=== PATIENT | male | born 1995 | race Caucasian/White ===

== ENCOUNTER 2017-12-27 20:25 | Emergency (ER) | payer OTHER, SELFPAY ==
[2017-12-27 20:25] VITALS: BP 149/88; PULSE 118; RESP 15; TEMP 37.8; BMI 40.1
[2017-12-27 21:13] VITALS: TEMP 37.1
--- NOTE | 2017-12-27 22:27 | ED.VISSUMM ---
- ER Visit Summary Date of Service: 12/27/17 Chief Complaint: Fever History of Present Illness: The patient is a 22 M who states that both him and his have been ill since yesterday. He states he has had a fever. 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 He notes a sore throat generalized myalgias slight headache and feels lightheaded. He last had Tylenol at 1900 hrs. ingesting 1000 mg. Otherwise a very healthy individual. He has no family doctor. Physical Examination: Afebrile here 98.6 heart rate of 118 respirations are 15 pulse ox is 98% on my exam blood pressure 149/88 Gen: Well-nourished well-developed Head: Normocephalic atraumatic Eyes: Perrl EOMI ENT: TMs clear no rhinorrhea moist mucous membranes the posterior pharynx is erythematous. There is some palatal petechiae. Neck: Supple no meningitic signs. There is scant anterior lymphadenopathy CVS: Regular rate and tachycardic rhythm no murmurs normal S1-S2 Respiratory: No distress clear to auscultation bilaterally chest nontender Abdomen: Soft nontender nondistended normal bowel sounds no masses Back: Nontender Extremity: Nontender no edema Skin: Normal color no rash diaphoretic Neuro: alert orientated ?3 CN II-XII intact normal strength sensation reflexes gait cerebellar Psych: Normal affect normal mood Test Results: Rapid strep is negative Emergency Department Course and Treatment: She will be discharged home with supportive care instructions for Tylenol or Motrin and fluid hydration and rest. Impression: 1. Viral pharyngitis This note was generated with [employer] dictation software. It may contain incorrect words, spelling, and punctuation that were not noted in review of the chart prior to signing ED Disposition - Plan for ED Patient: Disposition: Home or Assisted Living Chief Complaint: Fever Instructions: ED Pharyngitis Viral Prescriptions: Ibuprofen [Motrin] 800 mg PO TID PRN PRN #20 tab PRN Reason: Fever Referrals: Emmy Rasmussen MD [STAFF PHYSICIAN] - 1 Week if not improving
[2017-12-27 22:34] VITALS: PULSE 103; RESP 17; TEMP 37; O2SAT 99
== END 2017-12-27 22:35 | disposition home or self-care (01) ==
PROVIDERS: Emergency Provider Emergency Medicine
DX: J02.9 Acute pharyngitis, unspecified (principal)
CPT/HCPCS: 87880; 99282

== ENCOUNTER 2022-09-10 11:31 | Emergency (ER) | payer OTHER, SELFPAY ==
[2022-09-10 11:33] VITALS: BP 170/110; PULSE 71; RESP 18; TEMP 36.1; O2SAT 100; BMI 46.5
--- NOTE | 2022-09-10 11:54 | EX.ED.GENINJ ---
HPI History of Present Illness Chief Complaint: Head Injury Informant: patient Onset/Context/Timing Onset: Today Mechanism/Context: Fall Quality of Pain: Throbbing Location: Vertex of scalp Worsened by: Nothing Relieved by: Nothing Associated Symptoms Associated Symptoms: Negative for Parasthesias, Weakness, Loss of function, Inability to ambulate, Loss of consciousness or Amnesia Narrative Narrative: Patient presents with head injury that occurred today while he was at work. Patient states he fell backwards and hit the top of his head on a concrete curb. Patient denies any loss of consciousness. Patient denies any paresthesias or weakness. Patient denies any difficulty ambulating. Patient states nothing makes his pain worse and nothing makes it better. Patient describes his pain as throbbing. Patient denies any other injuries. Patient denies any bleeding or lacerations. PFSH PFSH Medical History no medical history no medical history Home Medications ibuprofen 800 mg tablet 800 mg PO TID PRN PRN Fever #20 tabs 12/27/17 [Rx Last Taken Unknown] Allergy/AdvReac Type Severity Reaction Status Date / Time No Known Allergies Allergy Verified 09/10/22 11:32 Surgical History no surgical history no surgical history Social History Smoking Status: Never smoker ROS ROS ED Constitutional Constitutional ED: Denies chills or fever(s) Eyes Eyes: Denies blurry vision or change in vision ENT ENT ED: Denies rhinorrhea or sore throat Cardiovascular Cardiovascular: Denies chest pain or palpitations Respiratory/Chest Respiratory/Chest: Denies cough or dyspnea Gastrointestinal Gastrointestinal: Denies nausea or vomiting Genitourinary Genitourinary ED: Denies dysuria or hematuria Musculoskeletal Musculoskeletal: Denies back pain or neck pain Integumentary Denies abscess or rash Neurologic Neurologic: Reports headache(s); Denies weakness Allergic/Immunologic Allergic/Immunologic ED: Denies mouth swelling or urticaria EXAM Physical Exam Const Vital Signs: 09/10/22 11:33 09/10/22 11:47 Temperature 97 F L Temperature Source Temporal Pulse Rate 71 Respiratory Rate 18 Respiratory Effort Normal Respiratory Depth Normal Respiratory Pattern Normal Blood Pressure 170/110 H Blood Pressure Mean 130 Pulse Ox 100 Oxygen Delivery Method Room Air Room Air Positive well nourished, well developed and obese General Appearance ED: well developed and NAD Nutritional Appearance: obese HEENT HEENT Narrative: There is tenderness over the vertex of the scalp. There is some mild edema. There is no bony crepitance or step-off. tenderness Eyes PERRL and EOMs intact bilaterally Neck full ROM Extremity normal to inspection and full ROM Neuro oriented x3, CN's II-XII intact bilaterally, moves all extremities, no focal motor deficits and no sensory deficits noted Varinder Coma Scale: document GCS findings Spontaneous Obeys Commands Oriented 15 Sensorium / Orientation: alert Motor Exam: strength 5/5 throughout Psych mental status grossly normal and thought process normal Skin no rashes or lesions noted MDM MDM MDM Narrative Medical decision making narrative: Differential diagnosis includes concussion and head contusion. Since the patient is not on any anticoagulants, had no loss of consciousness, and has no neurologic deficits, I do not feel that head CT is necessary at this time. Patient will be given concussion instructions. Patient will be instructed to drink plenty of fluids. Patient was instructed to limit screen time with his TV and phone. Patient was instructed to take Tylenol or ibuprofen as needed for pain. Patient understood and was agreeable with the plan. All questions were answered. Discharge Plan Triage Chief Complaint: Head Injury ED Provider: Kalen Vigil Dx/Rx/DC Orders Clinical Impression: Concussion Instructions: ED Concussion Prescriptions: No Action ibuprofen 800 MG tablet 800 mg PO TID PRN PRN (Reason: Fever) Qty: 20 0RF Primary Care Provider: Care Physician,No Primary Referrals: Care Physician,No Primary [Primary Care Provider] - Clinic,NOW [Non-Staff] - 3-5 Days Disposition Disposition: Home, Self Care
== END 2022-09-10 12:11 | disposition home or self-care (01) ==
LOC: ED 12:10
PROVIDERS: Emergency Provider Emergency Medicine; Visit Provider Emergency Medicine
DX: S06.0X0A Concussion without loss of consciousness, initial encounter (principal); W19.XXXA Unspecified fall, initial encounter; W01.198A Fall on same level from slipping, tripping and stumbling with subsequent striking against other object, initial encounter; Y99.0 Civilian activity done for income or pay; E66.9 Obesity, unspecified
CPT/HCPCS: 99282